=== PATIENT | female | born 1970 | race Caucasian/White ===

== ENCOUNTER 2022-06-14 15:33 | Emergency (ER) | payer SELFPAY ==
[~2022-06-14] VITALS: Ht 160 cm; Wt 63.5 kg
[2022-06-14 15:48] VITALS: BP 138/88
--- NOTE | 2022-06-14 15:52 | NUR ---
DR. VILLALPANDO AWARE OF PATIENT STATUS, STATED OKAY FOR PATIENT TO BE SENT TO WAIT OUTSIDE/LOBBY.
--- NOTE | 2022-06-14 16:14 | NUR ---
52/F BIBA FROM [facility]. EMS STATES PATIENT WAS IN THE MIDDLE OF A PEDICURE AND BEGAN FEELING FEBRILE. UPON ARRIVAL PATIENT C/O WHEELER, RUNNY NOSE, SORE THROAT, COUGH AND BODY ACHES. STATES RECENT EXPOSURE TO HER DAUGHTER WHO TESTED POSITIVE FOR COVID, DENIES SOB, CP. PMH: ANXIETY,HTN NKA
[2022-06-14] MEDS ORDERED: ACETAMINOPHEN EXTRA STRENGTH 500 MG TAB ONE (16:20)
[2022-06-14] MEDS ORDERED: ACETAMINOPHEN EXTRA STRENGTH 500 MG TAB PO ONE (16:20)
[2022-06-14] MEDS ORDERED: ONDANSETRON 4 MG ODT PO ONE (16:25)
[2022-06-14] MEDS ORDERED: ROBAC PO (18:12)
[2022-06-14] MEDS ORDERED: IBUP-2218 PO (18:12)
[2022-06-14] MEDS ORDERED: BENZ-300 PO (18:12)
[2022-06-14] MEDS ORDERED: ONDA-188 PO (18:15)
[2022-06-14 18:19] VITALS: BP 115/76
--- NOTE | 2022-06-14 18:19 | NUR ---
Patient discharged with v/s stable. Written and verbal after care instructions given and explained. Patient alert, oriented and verbalized understanding of instructions. Ambulatory with steady gait. All questions addressed prior to discharge. ID band removed. Patient advised to follow up with PMD. Rx of cepacol sore throat lozenge, ibuprofen & guaifenesin-codeine syrup given. Patient educated on indication of medication including possible reaction and side effects. Opportunity to ask questions provided and answered.
== END 2022-06-14 18:19 | disposition home or self-care (01) ==
LOC: MED 15:33
DX: B34.9 Viral infection, unspecified (principal); Z20.822 Contact with and (suspected) exposure to COVID-19; I10 Essential (primary) hypertension
CPT/HCPCS: 87426; 87804; 99283; Q0162

== ENCOUNTER 2022-08-08 08:40 | Emergency (ER) | payer MEDICAID ==
[~2022-08-08 08:40] MED LIST: BENZ-300 PO; IBUP-2218 PO; ONDA-188 PO; ROBAC PO
--- NOTE | 2022-08-08 12:45 | NUR ---
BLOOD SUGAR 96 AT THIS TIME.
[2022-08-08] MEDS: ONDANSETRON 4 MG ODT PO ONE (12:51)
[2022-08-08] MEDS: LORazepam 1 MG TAB PO ONE (12:51)
[2022-08-08 13:51] VITALS: BP 159/116
[2022-08-08] MEDS ORDERED: AMOX500C25 PO (13:55)
[2022-08-08] MEDS ORDERED: IBUP-2213 PO (13:59)
[2022-08-08] MEDS ORDERED: ONDA-188 PO (13:59)
[2022-08-08] MEDS ORDERED: ACET-8386 PO (13:59)
--- NOTE | 2022-08-08 14:20 | NUR ---
Patient discharged with v/s stable. Written and verbal after care instructions ABOUT TOOTH AVULSION given and explained. Patient alert, oriented and verbalized understanding of instructions. Ambulatory with steady gait. All questions addressed prior to discharge. ID band removed. Patient advised to follow up with PMD. Rx of NORCO 5-325, AMOXICILLIN, IBUPROFEN, ZOFRAN ODT given. Patient educated on indication of medication including possible reaction and side effects. Opportunity to ask questions provided and answered.
== END 2022-08-08 14:20 | disposition home or self-care (01) ==
LOC: MED 08:40
DX: S03.2XXA Dislocation of tooth, initial encounter (principal); F41.9 Anxiety disorder, unspecified; R11.2 Nausea with vomiting, unspecified; H92.09 Otalgia, unspecified ear; I10 Essential (primary) hypertension; Z79.899 Other long term (current) drug therapy; X58.XXXA Exposure to other specified factors, initial encounter; Y93.89 Activity, other specified; Y92.89 Other specified places as the place of occurrence of the external cause; Y99.8 Other external cause status
CPT/HCPCS: 81002; 81025; 99283; Q0162

== ENCOUNTER 2022-11-03 00:20 | Emergency (ER) | payer MEDICAID, OTHER ==
[~2022-11-03] VITALS: Ht 160 cm; Wt 68.0 kg
[2022-11-03 00:20] VITALS: BP 153/79
[~2022-11-03 00:20] MED LIST changes: +ACET-8905 PO; +AMOX500C25 PO; +IBUP-2213 PO
--- NOTE | 2022-11-03 00:24 | NUR ---
PT OFFLOADED TO BED 05
[2022-11-03] MEDS ORDERED: ALUMINUM HYD/MAG/SIMETHICONE 30 ML UDC PO ONE ×2 (01:05→05:20)
[2022-11-03] MEDS ORDERED: FAMOTIDINE 20 MG TAB PO ONE (01:05)
[2022-11-03] MEDS ORDERED: ONDANSETRON 4 MG ODT PO ONE (01:05)
[2022-11-03] MEDS ORDERED: HYDROXYZINE HYDROCHLORIDE 25 MG TAB PO ONE (01:05)
--- NOTE | 2022-11-03 01:21 | NUR ---
LAB AT BEDSIDE .
--- NOTE | 2022-11-03 01:21 | NUR ---
PATIENT REFUSED ZOFRAN MEDICATION. STATED "IM NOT TAKING THAT"
--- NOTE | 2022-11-03 01:21 | NUR ---
PATIENT REFUSED LAB WORK. JUAN LINCOLN AWARE. AT BEDSIDE SPEAKING TO PATIENT.
--- NOTE | 2022-11-03 01:27 | NUR ---
PATIENT REFUSED LABS "I WILL ONLY GET THEN DRAWN IF I GET AN IV AND FLUIDS. I NEED FLUIDS". JUAN LINCOLN AWARE.
--- NOTE | 2022-11-03 01:28 | NUR ---
SWABS COLLECTED AND HANDED TO LAB
[2022-11-03] MEDS ORDERED: NACL 0.9% 1,000 ML IV ONE (01:30)
--- NOTE | 2022-11-03 01:34 | NUR ---
LAB AT BEDSIDE
--- NOTE | 2022-11-03 01:45 | NUR ---
Attepmted to start IV, and upon getting ready to start IV, patient became anxious and started shaking. IV not attempted. Requested another RN to start IV. Addendum: 11/03/22 at 0146 by [email or web address] Attepmted to start IV, and upon getting ready to start IV, patient became anxious and started shaking. IV start not attempted. Requested another RN to start IV.
--- NOTE | 2022-11-03 01:53 | NUR ---
ATTEMPTED 2XS TO START IV, UNSUCCESSFUL, PT STATED SHE DOESNT WANT TO BE POKED 3X'S. ANOTHER NURSE WILL TRY.
--- NOTE | 2022-11-03 01:56 | NUR ---
Dr. Mcdermott examining patient.
[2022-11-03] MEDS ORDERED: MORPHINE SULFATE 4 MG/ML SYR IVP ONE (02:25)
[2022-11-03 02:29] LABS: BASOPHILS # (AUTO) 0.1 K/uL (0.00-0.22); BASOPHILS % (AUTO) 1.3 % (0.0-2.0); EOSINOPHILS # (AUTO) 0.4 K/uL (0-0.4); EOSINOPHILS % (AUTO) 4.8 % (0.0-4.0); HEMATOCRIT 37.8 % (36-48); HEMOGLOBIN 12.8 g/dL (12.0-16.0); LYMPHOCYTES # (AUTO) 2.5 K/uL (2.5-16.5); LYMPHOCYTES % (AUTO) 33.6 % (20.5-51.1); MEAN CORPUSCULAR HEMOGLOBIN 29 pg (27-31); MEAN CORPUSCULAR HGB CONC 34 g/dL (33-37); MEAN CORPUSCULAR VOLUME 85.8 fL (80-94); MONOCYTES # (AUTO) 0.5 K/uL (0.8-1.0); NEUTROPHILS % (AUTO) 53.3 % (42.2-75.2); PLATELET COUNT (AUTO) 228 K/uL (140-450); RED CELL DISTRIBUTION WIDTH 13.8 % (11.6-13.7); WHITE BLOOD COUNT (AUTO) 7.6 K/uL (4.8-10.8)
[2022-11-03 02:42] LABS: ALBUMIN 3.6 g/dL (3.4-5.0); ANION GAP 14.3 (8-16); CARBON DIOXIDE 26.7 mmol/L (21-32); CREATININE 0.7 mg/dL (0.6-1.3); TOTAL BILIRUBIN 0.2 mg/dL (0.0-1.0)
[2022-11-03] MEDS ORDERED: LORazepam 1 MG TAB PO ONE (03:25)
[2022-11-03] MEDS ORDERED: SUCR1TAB35 PO (05:19)
[2022-11-03] MEDS ORDERED: FAMO-90 PO (05:19)
[2022-11-03] MEDS ORDERED: ALUMINUM HYD/MAG/SIMETHICONE 30 ML UDC ONE (05:20)
[2022-11-03] MEDS ORDERED: ATA25 PO (05:21)
[2022-11-03 05:31] VITALS: BP 137/71
--- NOTE | 2022-11-03 05:34 | NUR ---
Patient discharged with v/s stable. Written and verbal after care instructions given and explained. Patient alert, oriented and verbalized understanding of instructions. Ambulatory with steady gait. All questions addressed prior to discharge. ID band removed. Patient advised to follow up with PMD. Rx of ATARAX, PEPCID given. Patient educated on indication of medication including possible reaction and side effects. Opportunity to ask questions provided and answered.
== END 2022-11-03 05:34 | disposition home or self-care (01) ==
LOC: MED 00:20
DX: R07.89 Other chest pain (principal); Z20.822 Contact with and (suspected) exposure to COVID-19; J06.9 Acute upper respiratory infection, unspecified; F41.9 Anxiety disorder, unspecified
CPT/HCPCS: 36415; 71045; 80053; 83690; 83880; 84484; 85025; 87426; 87804; 96361; 96374; 99291; J2270; J7030; Q0092; Q0162

== ENCOUNTER 2022-12-13 08:57 | Emergency (ER) | payer OTHER ==
[~2022-12-13] VITALS: Ht 157.5 cm; Wt 68.0 kg
[~2022-12-13 08:57] MED LIST changes: +ATA25 PO; +FAMO-90 PO; +SUCR1TAB35 PO
[2022-12-13 08:59] VITALS: BP 144/70
--- NOTE | 2022-12-13 09:10 | NUR ---
52/F BIBA FROM HOME C/O ANXIETY AND CP ONSET THIS MORNING. PT REPORTS HX ANXIETY BUT DENIES TAKING ANY MEDS. PT REPORTS 9/10 MIDSTERNAL CP AT THIS TIME. PT STATES SHE RECENTLY GOT OUT OF [facility] RECENTLY AND "RECENTLY HAVING DIFFICULT TIME ADJUSTING". AAO4, AMBULATORY, VITALS STABLE. ON WAITER/WAITRESS COUNTER. PMH: ANXIETY ALLERGIES: ACETAMINOPHEN, TORADOL
[2022-12-13] MEDS: LORazepam 2 MG/ML VIAL IM ONE (09:48)
--- NOTE | 2022-12-13 10:58 | NUR ---
URINE COLLECTED AND SENT TO LAB
[2022-12-13] MEDS ORDERED: ATA25 PO (11:22)
[2022-12-13 12:25] LABS: BARBITURATE, URINE NEGATIVE ng/ml (NEG <=200); BENZODIAZEPINE, URINE NEGATIVE ng/mL (NEG <=200); CANNABINOID, URINE NEGATIVE ng/mL (NEG <=50); COCAINE, URINE NEGATIVE ng/mL (NEG <=300); OPIATE, URINE NEGATIVE ng/mL (NEG <=2000); PHENCYCLIDINE SCREEN,URINE NEGATIVE ng/mL (NEG <=25)
== END 2022-12-13 11:28 | disposition home or self-care (01) ==
LOC: MED 08:57
DX: F41.9 Anxiety disorder, unspecified (principal); R22.0 Localized swelling, mass and lump, head; K21.9 Gastro-esophageal reflux disease without esophagitis; I10 Essential (primary) hypertension; Z88.6 Allergy status to analgesic agent; Z88.8 Allergy status to other drugs, medicaments and biological substances; Z79.899 Other long term (current) drug therapy
CPT/HCPCS: 71045; 80305; 93005; 96372; 99285; J2060; Q0092

== ENCOUNTER 2022-12-28 21:48 | Emergency (ER) | payer OTHER ==
[~2022-12-28] VITALS: Ht 162.6 cm; Wt 68.0 kg
[2022-12-28 22:00] VITALS: BP 151/96
--- NOTE | 2022-12-28 22:03 | NUR ---
to lobby a/w bed ambulatory
--- NOTE | 2022-12-28 22:15 | NUR ---
RECEIVED PT WITH C/O N/V. PT SPEAKING ON CELL PHONE.
--- NOTE | 2022-12-28 22:15 | NUR ---
PT TAKEN TO BED 6
--- NOTE | 2022-12-28 22:20 | NUR ---
PT REFUSES LAB DRAW
--- NOTE | 2022-12-28 22:36 | NUR ---
Dr. Saez examining patient.
[2022-12-28] MEDS ORDERED: PROCHLORPERAZINE 10 MG/2 ML VIAL IVP ONE (23:05)
[2022-12-28] MEDS ORDERED: diphenhydrAMINE 50 MG/ML VIAL IVP ONE (23:05)
--- NOTE | 2022-12-28 23:06 | NUR ---
WENT TO START IV, PT'S PHONE RANG AND STATED SHE NEEDED TO TAKE THE PHONE CALL.
--- NOTE | 2022-12-28 23:12 | NUR ---
X-Ray at bedside.
--- NOTE | 2022-12-28 23:16 | NUR ---
PT TAKEN TO CT
--- NOTE | 2022-12-28 23:24 | NUR ---
PT RETURN FROM CT
[2022-12-28 23:47] LABS: BASOPHILS # (AUTO) 0.1 K/uL (0.00-0.22); BASOPHILS % (AUTO) 1.2 % (0.0-2.0); EOSINOPHILS # (AUTO) 0.2 K/uL (0-0.4); EOSINOPHILS % (AUTO) 3.3 % (0.0-4.0); HEMATOCRIT 36.6 % (36-48); HEMOGLOBIN 12.2 g/dL (12.0-16.0); LYMPHOCYTES % (AUTO) 31.5 % (20.5-51.1); MEAN CORPUSCULAR HEMOGLOBIN 28 pg (27-31); MEAN CORPUSCULAR HGB CONC 33 g/dL (33-37); MONOCYTES # (AUTO) 0.4 K/uL (0.8-1.0); MONOCYTES % (AUTO) 5.6 % (1.7-9.3); NEUTROPHILS # (AUTO) 3.7 K/uL (1.8-7.7); NEUTROPHILS % (AUTO) 58.4 % (42.2-75.2); PLATELET COUNT (AUTO) 251 K/uL (140-450); RED BLOOD CELL COUNT(AUTO) 4.31 MIL/uL (4.20-5.40); RED CELL DISTRIBUTION WIDTH 14.1 % (11.6-13.7); WHITE BLOOD COUNT (AUTO) 6.4 K/uL (4.8-10.8)
[2022-12-29 00:11] LABS: ALBUMIN 4.1 g/dL (3.4-5.0); ANION GAP 16.8 (8-16); CARBON DIOXIDE 23.6 mmol/L (21-32); CREATININE 0.8 mg/dL (0.6-1.3); POTASSIUM 3.4 mmol/L (3.5-5.1); TOTAL BILIRUBIN 0.4 mg/dL (0.0-1.0)
[2022-12-29] MEDS ORDERED: LORazepam 1 MG TAB PO ONE (02:25)
[2022-12-29] MEDS ORDERED: ACET-2619 PO (02:25)
[2022-12-29 02:35] VITALS: BP 151/96
== END 2022-12-29 02:35 | disposition home or self-care (01) ==
LOC: MED 21:48
DX: R51.9 Headache, unspecified (principal); F41.9 Anxiety disorder, unspecified; R11.10 Vomiting, unspecified; H93.13 Tinnitus, bilateral; K21.9 Gastro-esophageal reflux disease without esophagitis; I10 Essential (primary) hypertension; Z79.899 Other long term (current) drug therapy; Z88.6 Allergy status to analgesic agent; Z88.8 Allergy status to other drugs, medicaments and biological substances
CPT/HCPCS: 36415; 70450; 71045; 80053; 83690; 84484; 85025; 96374; 96375; 99285; J0780; J1200; Q0092